=== PATIENT | female | born 1945 | race Caucasian/White ===

== ENCOUNTER → 2018-04-13 | Outpatient (CLI) | payer OTHER ==
[~2018-04-13] MED LIST: ASPI81TA28 PO; LANS15CA6 PO; LEVO88TA PO; MISCCAP80 PO
[2018-04-13 13:03] LABS: BASO % 1.2 %; BASO ABS # 0.05 K/uL (0-0.2); EOS % 3.3 %; EOS ABS # 0.14 K/uL (0-0.5); HEMATOCRIT 39.3 % (37-47); HEMOGLOBIN 12.9 g/dL (12.0-16.0); IG# 0.01 K/uL (0.00-0.02); LYMPH % 46.2 %; LYMPH ABS # 1.95 K/uL (1.2-3.4); MEAN CELL VOLUME 95.6 fL (80-100); MEAN CORPUSCULAR HEMOGLOBIN 31.4 pg (25-34); MEAN CORPUSCULAR HGB CONC 32.8 g/dl (32-36); MEAN PLATELET VOLUME 10.4 fL (7.4-10.4); MONO % 8.3 %; MONO ABS # 0.35 K/uL (0.11-0.59); NEUT % 40.8 %; NEUT ABS # 1.72 K/uL (1.4-6.5); PLATELET COUNT 313 K/uL (130-400); RED CELL DISTRIBUTION WIDTH CV 13.4 % (11.5-14.5); RED CELL DISTRIBUTION WIDTH SD 46.5 fL (36.4-46.3); WHITE BLOOD COUNT 4.22 K/uL (4.8-10.8)
== END | disposition home or self-care (01) ==
LOC: C.LABMFLN 08:24
PROVIDERS: ATTEND Family Medicine
DX: E03.9 Hypothyroidism, unspecified (principal); E78.5 Hyperlipidemia, unspecified; Z88.9 Allergy status to unspecified drugs, medicaments and biological substances

== ENCOUNTER 2018-04-19 12:22 | Emergency (ER) | payer OTHER ==
[~2018-04-19] VITALS: Ht 162.6 cm; Wt 70.0 kg
[2018-04-19 12:28] VITALS: TEMP 37; Ht 162.6 cm; Wt 70.0 kg
--- NOTE | 2018-04-19 13:07 | EMERGENCY ROOM VISIT NOTE ---
History Report prepared by Rita: Anamika Fitzpatrick Under the Supervision of: Dr. Lorenzo Molina M.D. First contact with patient: 12:37 Chief Complaint: DIZZY Stated Complaint: DIZZY History of Present Illness The patient is a 72 year old white female with a past medical history of diverticulitis, thyroid problems, abdominal surgery, and high cholesterol who presents to the ED with a cc of an episode of dizziness beginning 1.5 hours ago. She notes she was shopping following lunch when she felt as though "inside her head went sideways." The patient states she felt as though she was teetering , but notes she did not physically nghia. She reports the feeling passed, and she continued shopping. The patient states a short time later she began feeling "sick like the flu" and experienced nausea and stomach bloating. She notes she then began feeling as though she was not breathing normally, which has since resolved. She notes she has no current symptoms aside from feeling shaky. The patient denies any vomiting, headache, fevers, chills, CP, or cough. Her daughter ate lunch at the same restaurant and denies any symptoms. The patient reports her last bowel movement was this morning. She denies recent travel, well or stream water use, camping, hiking, or tick bites. The patient denies a history of blood sugar problems and states she does not use tobacco or alcohol. She reports she takes medication for her thyroid but does not take medication for high cholesterol. Source of History: patient Onset: 1.5 hours ago Position: head Quality: other (dizziness) Timing: other (episode) Associated Symptoms: + nausea, No fevers, No chills, No headache, No cough, No vomiting Note: Associated symptoms: stomach bloating, breathing abnormally Review of Systems See HPI for pertinent positives and negatives. A total of ten systems were reviewed and were otherwise negative. Past Medical & Surgical Medical Problems: (1) High cholesterol (2) History of asthma (3) History of diverticulitis Dizziness Family History FHx: cancer FHx: diabetes mellitus FHx: heart disease Social History Smoking Status: Never Smoker Smokeless Tobacco Use: No Alcohol Use: none Drug Use: none Marital Status: Housing Status: lives with significant other Occupation Status: retired Current/Historical Medications Scheduled Aspirin (Aspirin Ec), 81 MG PO DAILY Lansoprazole (Prevacid), 15 MG PO DAILY Levothyroxine Sodium (Synthroid), 88 MCG PO DAILY Probiotic Product (Probiotic), 1 CAP PO DAILY Allergies Coded Allergies: Cetirizine (Unverified Allergy, Unknown, ., 04/19/18) Metronidazole (Unverified Allergy, Unknown, ., 04/19/18) Physical Exam Vital Signs Date Time Temp Pulse Resp B/P (MAP) Pulse Ox O2 Delivery O2 Flow Rate FiO2 04/19/18 14:08 82 17 122/71 95 04/19/18 13:05 92 04/19/18 12:39 97 20 139/90 95 Room Air 100 153/85 100 130/84 04/19/18 12:28 37.0 101 18 138/81 96 Room Air Physical Exam GENERAL: Awake, alert, well-appearing, NAD,, wearing glasses HENT: Normocephalic, atraumatic. EYES: Normal conjunctiva. Sclera non-icteric. PERRL. No anisocoria. NECK: Supple. No nuchal rigidity. FROM. RESPIRATORY: CTAB, no rhonchi, wheezing, crackles CARDIAC: RRR, no MRG ABDOMEN: Soft, NTND, BS+. Negative obturator, negative psoas. MSK: No chest wall TTP, no LE edema, no CVA TTP. NEURO: GCS 15, CN 2-12 intact, moves all 4s on command SKIN: No rash or jaundice noted. Medical Decision & Procedures Laboratory Results 04/19/18 13:05 Red Blood Count 3.96, Mean Corpuscular Volume 94.9, Mean Corpuscular Hemoglobin 32.1, Mean Corpuscular Hemoglobin Concent 33.8, Mean Platelet Volume 9.8, Neutrophils (%) (Auto) 57.4, Lymphocytes (%) (Auto) 32.7, Monocytes (%) (Auto) 7.6, Eosinophils (%) (Auto) 1.6, Basophils (%) (Auto) 0.5, Neutrophils # (Auto) 3.27, Lymphocytes # (Auto) 1.86, Monocytes # (Auto) 0.43, Eosinophils # (Auto) 0.09, Basophils # (Auto) 0.03 04/19/18 13:05 Test 04/19/18 13:05 White Blood Count 5.69 K/uL (4.8-10.8) Red Blood Count 3.96 M/uL (4.2-5.4) Hemoglobin 12.7 g/dL (12.0-16.0) Hematocrit 37.6 % (37-47) Mean Corpuscular Volume 94.9 fL (80-100) Mean Corpuscular Hemoglobin 32.1 pg (25-34) Mean Corpuscular Hemoglobin Concent 33.8 g/dl (32-36) Platelet Count 285 K/uL (130-400) Mean Platelet Volume 9.8 fL (7.4-10.4) Neutrophils (%) (Auto) 57.4 % Lymphocytes (%) (Auto) 32.7 % Monocytes (%) (Auto) 7.6 % Eosinophils (%) (Auto) 1.6 % Basophils (%) (Auto) 0.5 % Neutrophils # (Auto) 3.27 K/uL (1.4-6.5) Lymphocytes # (Auto) 1.86 K/uL (1.2-3.4) Monocytes # (Auto) 0.43 K/uL (0.11-0.59) Eosinophils # (Auto) 0.09 K/uL (0-0.5) Basophils # (Auto) 0.03 K/uL (0-0.2) RDW Standard Deviation 45.8 fL (36.4-46.3) RDW Coefficient of Variation 13.1 % (11.5-14.5) Immature Granulocyte % (Auto) 0.2 % Immature Granulocyte # (Auto) 0.01 K/uL (0.00-0.02) Prothrombin Time 9.9 SECONDS (9.0-12.0) Prothromb Time International Ratio 0.9 (0.9-1.1) Activated Partial Thromboplast Time 25.0 SECONDS (21.0-31.0) Partial Thromboplastin Ratio 1.0 Anion Gap 6.0 mmol/L (3-11) Est Creatinine Clear Calc Drug Dose 67.9 ml/min Estimated GFR () 95.1 Estimated GFR (Non- 82.1 BUN/Creatinine Ratio 23.1 (10-20) Calcium Level 8.9 mg/dl (8.5-10.1) Phosphorus Level 3.2 mg/dl (2.5-4.9) Magnesium Level 2.0 mg/dl (1.8-2.4) Total Bilirubin 0.3 mg/dl (0.2-1) Direct Bilirubin < 0.1 mg/dl (0-0.2) Aspartate Amino Transf (AST/SGOT) 18 U/L (15-37) Alanine Aminotransferase (ALT/SGPT) 25 U/L (12-78) Alkaline Phosphatase 86 U/L (45-117) Troponin I < 0.015 ng/ml (0-0.045) Pro-B-Type Natriuretic Peptide 34 pg/ml (0-900) Total Protein 7.5 gm/dl (6.4-8.2) Albumin 4.1 gm/dl (3.4-5.0) Thyroid Stimulating Hormone (TSH) 0.146 uIu/ml (0.300-4.500) Laboratory results reviewed by me ECG Per My Interpretation Indication: weakness Rate (beats per minute): 85 Rhythm: normal sinus Findings: other (normal axis. normal intervals. no ST segment changes. no T- wave inversion.) ED Course 1244: The patient was evaluated in room A12B. A complete history and physical exam was performed. 1414: I reevaluated the patient. Discussed results and discharge instructions: she verbalized understanding and agreement. The patient is ready for discharge. Medical Decision Nursing notes reviewed. Ancillary studies and prior records reviewed. The patient is a 72 year old white female with a past medical history of diverticulitis, thyroid problems, abdominal surgery, and high cholesterol who presents to the ED with a cc of an episode of dizziness beginning 1.5 hours ago. Etiologies such as vasovagal event, infection, hypoglycemia, electrolyte abnormalities, cardiac sources, intracerebral event, toxicologic, neurologic, as well as others were entertained. Patient was seen and evaluated the bedside. Patient was complaining is that she felt her body movement but she was not moving. Patient then had acute onset of some nausea and abdominal discomfort. Patient states that she feels improved compared to prior. Patient denies any recent travel, sick contacts, food ingestions, stream or well water, hunting, camping, hiking, or tick bites. Patient has a nonfocal neurologic exam and denies any other symptoms, do not believe she needs a CT of the brain or plain films at this time. Patient has had a recent bowel movement and has a soft abdomen I do not believe that she has a bowel obstruction. Patient did blood work completed, EKG, troponin. Patient was encouraged to hydrate p.o. Patient's EKG is unremarkable. Patient has normal white blood cell count and is not anemic. Patient's kidney function is normal. No elevations in LFTs or lipase. Patient's TSH is low which may mean that the patient is on an appropriate dose of her thyroid medication. Patient was reassessed and the patient was feeling improved. Given the patient's improvement in symptoms without any management inferiorly reassuring blood work with a nonischemic EKG and negative troponin I believe the patient is suitable for outpatient follow-up and treatment at this time. Patient was told return if she had any worsening symptoms. Medication Reconcilliation Current Medication List: was personally reviewed by me Blood Pressure Screening Patient's blood pressure: Normal blood pressure Blood pressure disposition: Did not require urgent referral Impression Primary Impression: Dizziness Additional Impression: Low TSH level Scribe Attestation The scribe's documentation has been prepared under my direction and personally reviewed by me in its entirety. I confirm that the note above accurately reflects all work, treatment, procedures, and medical decision making performed by me. Departure Information Dispostion Home / Self-Care Referrals Drake Alex M.D. (PCP) Forms HOME CARE DOCUMENTATION FORM, IMPORTANT VISIT INFORMATION Patient Instructions ED Dizziness JOSE M, [facility] Additional Instructions Please return to the emergency department if you have worsening or recurrent symptoms not amenable to at-home treatment. Please call for a follow-up appointment with her primary care physician. Please take your medications as prescribed. If you have other concerns and/or complaints please feel free to also call your primary care physician's office or return the ED for further evaluation, management, and treatment. You may take 600 mg Ibuprofen every 6 hours as needed for pain/fever with food unless told by your physician not to take NSAIDs. You may take tylenol 650 mg every 6 hours as needed for pain/fever unless told by your physician to not take it or have liver problems. Take your medications as prescribed. You have been examined and treated today on an emergency basis only. This is not a substitute for, or an effort to provide, complete comprehensive medical care. It is impossible to recognize and treat all injuries or illnesses in a single emergency department visit. It is therefore important that you follow up closely with [facility], your PCP, and/or your specialist(s). Call as soon as possible for an appointment. Thank you for your time and consideration. I look forward to speaking with you again soon. Please don't hesitate to call us if you have any questions. Problem Qualifiers
[2018-04-19 13:21] LABS: BASO % 0.5 %; BASO ABS # 0.03 K/uL (0-0.2); EOS % 1.6 %; EOS ABS # 0.09 K/uL (0-0.5); HEMATOCRIT 37.6 % (37-47); HEMOGLOBIN 12.7 g/dL (12.0-16.0); IG# 0.01 K/uL (0.00-0.02); LYMPH % 32.7 %; LYMPH ABS # 1.86 K/uL (1.2-3.4); MEAN CELL VOLUME 94.9 fL (80-100); MEAN CORPUSCULAR HEMOGLOBIN 32.1 pg (25-34); MEAN CORPUSCULAR HGB CONC 33.8 g/dl (32-36); MEAN PLATELET VOLUME 9.8 fL (7.4-10.4); MONO % 7.6 %; MONO ABS # 0.43 K/uL (0.11-0.59); NEUT % 57.4 %; NEUT ABS # 3.27 K/uL (1.4-6.5); PLATELET COUNT 285 K/uL (130-400); RED CELL DISTRIBUTION WIDTH CV 13.1 % (11.5-14.5); RED CELL DISTRIBUTION WIDTH SD 45.8 fL (36.4-46.3); WHITE BLOOD COUNT 5.69 K/uL (4.8-10.8)
[2018-04-19 13:33] LABS: INR 0.9 (0.9-1.1)
[2018-04-19 13:48] LABS: ALBUMIN 4.1 gm/dl (3.4-5.0); ALKALINE PHOSPHATASE 86 U/L (45-117); ALT/SGPT 25 U/L (12-78); AST/SGOT 18 U/L (15-37); BLOOD UREA NITROGEN 17 mg/dl (7-18); CALCIUM 8.9 mg/dl (8.5-10.1); CARBON DIOXIDE 30 mmol/L (21-32); CREATININE 0.74 mg/dl (0.60-1.20); GLUCOSE 106 mg/dl (70-99); PHOSPHORUS 3.2 mg/dl (2.5-4.9); SODIUM 136 mmol/L (136-145); TOTAL PROTEIN 7.5 gm/dl (6.4-8.2)
[2018-04-19] MEDS ORDERED: ASPI81TA28 PO (13:51)
[2018-04-19] MEDS ORDERED: MISCCAP80 PO (13:51)
[2018-04-19] MEDS ORDERED: LEVO88TA PO (13:51)
[2018-04-19] MEDS ORDERED: LANS15CA6 PO (13:51)
[2018-04-19 14:08] VITALS: BP 122/71; PULSE 82; O2SAT 95
== END 2018-04-19 14:08 | disposition home or self-care (01) ==
LOC: C.EDB 12:23 → C.EDA 14:08
DX: R42 Dizziness and giddiness (principal); R94.6 Abnormal results of thyroid function studies; E78.00 Pure hypercholesterolemia, unspecified; J45.909 Unspecified asthma, uncomplicated; Z80.9 Family history of malignant neoplasm, unspecified; Z83.3 Family history of diabetes mellitus; Z79.82 Long term (current) use of aspirin; Z79.899 Other long term (current) drug therapy; Z88.8 Allergy status to other drugs, medicaments and biological substances